=== PATIENT | female | born 1995 | race Caucasian/White ===

== ENCOUNTER 2019-10-15 14:07 | Emergency (ER) | payer BC ==
[~2019-10-15] VITALS: Ht 165.1 cm; Wt 72.6 kg
[2019-10-15 15:05] LABS: Basophils # (auto) 0.1 10 ^3/uL (0-0.2); Basophils % (auto) 0.5 % (0.0-2.0); Eosinophils # (auto) 0 10 ^3/uL (0-0.8); Eosinophils % (auto) 0.2 % (0.0-7.0); Hematocrit 37.4 % (36.0-46.0); Hemoglobin 12.8 g/dL (12.2-16.2); Lymphocytes % (auto) 19.3 % (10.0-50.0); Mean Corpuscular Hemoglobin 32.4 pg (28.0-32.0); Mean Corpuscular Hgb Conc. 34.2 g/dL (32.0-36.0); Mean Corpuscular Volume 94.7 fL (80.0-100.0); Monocytes # (auto) 0.8 10 ^3/uL (0-1.3); Monocytes % (auto) 7.4 % (0.0-12.0); Neutrophils # (auto) 7.6 10 ^3/uL (1.6-8.6); Neutrophils % (auto) 72.6 % (37.0-80.0); Nucleated Red Blood Cells % 0.1 %; Platelet Count (auto) 320 10^3/uL (140-450); Red Blood Cells 3.95 10^6/uL (4.0-5.20); Red Cell Distribution Width 13.5 % (11.8-14.3); White Blood Cell 10.5 10^3/uL (4.4-10.8)
[2019-10-15 15:20] LABS: Albumin 3.5 g/dL (3.4-5.0); Anion Gap 4 (5-15); Blood Urea Nitrogen 7 mg/dL (7-18); Calcium 9.2 mg/dL (8.5-10.1); Carbon Dioxide 25 mmol/L (21-32); Chloride 109 mmol/L (98-107); Glucose 81 mg/dL (74-106); Potassium 3.7 mmol/L (3.5-5.1); Sodium 138 mmol/L (136-145)
[2019-10-15 15:25] LABS: Alanine Aminotransferase 14 U/L (13-56); Alkaline Phosphatase 62 U/L (45-117); Aspartate Aminotransferase 13 U/L (15-37); BUN/Creatinine Ratio 10.9; Bilirubin, Total 0.2 mg/dL (0.2-1.0); GFR African American 149 mL/min; GFR Non-African American 123 mL/min; Total Protein 7.6 g/dL (6.4-8.2)
[2019-10-15 15:37] LABS: Urine Bacteria FEW /hpf (None Seen); Urine Blood Negative /uL (Negative); Urine Mucus FEW (None Seen); Urine Specific Gravity 1.025 (1.001-1.035); Urine WBC 1 /hpf (0 - 5)
[2019-10-15 16:20] VITALS: BP 129/66
== END 2019-10-15 16:21 | disposition home or self-care (01) ==
LOC: ER 14:07
DX: O26.892 Other specified pregnancy related conditions, second trimester (principal); R00.2 Palpitations; Z3A.15 15 weeks gestation of pregnancy
CPT/HCPCS: 36415; 80053; 81001; 84484; 85025; 93005

== ENCOUNTER 2019-12-08 17:57 | Emergency (ER) | payer BC, OTHER ==
[~2019-12-08] VITALS: Ht 165.1 cm; Wt 81.6 kg
[2019-12-08 18:22] VITALS: BP 118/62
== END 2019-12-08 18:21 | disposition still patient (30) ==
LOC: ER 17:57
DX: O26.892 Other specified pregnancy related conditions, second trimester (principal); Z3A.23 23 weeks gestation of pregnancy; V49.9XXA Car occupant (driver) (passenger) injured in unspecified traffic accident, initial encounter; Y93.89 Activity, other specified; Y92.89 Other specified places as the place of occurrence of the external cause; Y99.8 Other external cause status
CPT/HCPCS: 76815

== ENCOUNTER → 2019-12-08 18:48 | Observation (INO) | payer BC, OTHER ==
[~2019-12-08] VITALS: Ht 165.1 cm; Wt 72.6 kg
== END | disposition home or self-care (01) ==
LOC: LDRP 18:48
PROVIDERS: ADMIT Specialist; ATTEND Specialist
DX: O9A.212 Injury, poisoning and certain other consequences of external causes complicating pregnancy, second trimester (principal); O26.892 Other specified pregnancy related conditions, second trimester; R10.9 Unspecified abdominal pain; Z3A.22 22 weeks gestation of pregnancy; V49.3XXA Car occupant (driver) (passenger) injured in unspecified nontraffic accident, initial encounter; Y93.89 Activity, other specified; Y92.89 Other specified places as the place of occurrence of the external cause; Y99.8 Other external cause status
CPT/HCPCS: 59025; 81002; G0378

== ENCOUNTER 2025-02-06 00:13 | Emergency (ER) | payer OTHER ==
[~2025-02-06] VITALS: Ht 172.7 cm; Wt 68.0 kg
[2025-02-06 00:13] VITALS: BP 124/80; PULSE 109; RESP 18; TEMP 98.2; O2SAT 99
--- NOTE | 2025-02-06 01:15 | DVH ---
CLINICAL INDICATION: FALL INJURY PAIN AND SWELLING TECHNIQUE: XYXY L ANKLE 3 VIEW Comparison: None FINDINGS/IMPRESSION: : There is no evidence of acute fracture or dislocation. Soft tissues are unremarkable.
== END 2025-02-06 03:27 | disposition left against medical advice (07) ==
LOC: EDUNIT# 00:13 → ER 00:13 → EDBD 00:13 → ER 03:27
DX: M25.572 Pain in left ankle and joints of left foot (principal)
CPT/HCPCS: 73610